=== PATIENT | female | born 1970 | race African-American/Black ===

== ENCOUNTER 2016-11-22 03:45 | Inpatient (IN) ==
--- NOTE | 2016-11-17 12:56 | EKG Report ---
Test Performed on : 11/17/2016 12:15:41 PM Test Reason : PAT Blood Pressure : / mmHG Vent. Rate : 090 BPM Atrial Rate : 090 BPM P-R Int : 166 ms QRS Dur : 074 ms QT Int : 348 ms P-R-T Axes : 052 057 051 degrees QTc Int : 425 ms Normal sinus rhythm. Normal ECG No previous ECGs available Confirmed by Deysi OSWALD, Pratik Tirado ([id number]) on 11/18/2016 7:03:19 AM
[2016-11-17 13:08] LABS: MANUAL DIFF NEEDED? NO
[2016-11-17 13:08] LABS: URINE MICRO REVIEW NEEDED? NO; URINE SOURCE VOIDED
[2016-11-17 13:22] LABS: BASO% 0.4 % (0.0-0.8); EOS# 0.16 X1000 (0.0-0.7); EOS% 1.4 % (0.0-10.0); HEMOGLOBIN 13.4 g/dL (12.0-16.0); LYMPH# 3.77 X1000 (1.2-3.4); MCH 28.8 PG (27-31); MCHC 33.5 g/dL (33-37); MCV 85.8 FL (81-99); MONO# 0.94 X1000 (0.11-0.59); MONO% 8.2 % (1.7-9.3); MPV 11.2 FL (7.4-10.4); PLT 323 X1000 (130-400); RBC 4.66 XMIL (4.2-5.4)
[2016-11-17 13:22] LABS: BILIRUBIN URINE NEGATIVE (NEGATIVE); COLOR YELLOW; GLUCOSE URINE NEGATIVE (NEGATIVE); LEUKOCYTES URINE NEGATIVE (NEGATIVE); NITRITE URINE NEGATIVE (NEGATIVE); PROTEIN URINE NEGATIVE (NEGATIVE); SP GRAVITY URINE 1.017; TURBIDITY URINE CLEAR (CLEAR); UROBILINOGEN URINE NORMAL (NORMAL)
[2016-11-17 13:36] LABS: INR 1.06; PROTIME 11.2 Seconds (9.2-11.7); PTT 29.2 Seconds (22.0-36.0)
[2016-11-17 13:37] LABS: BLOOD URINE MODERATE (NEGATIVE)
[2016-11-17 13:39] LABS: UR EPITHELIAL CELLS <10 /HPF (<10); URINE BACTERIA 1+ /HPF; URINE RBC <10 /HPF (<10); URINE WBC <10 /HPF (<10)
[2016-11-17 14:01] LABS: CALCIUM 7.5 mg/dL (8.8-10.2); POTASSIUM 3.8 mmol/L (3.5-5.1)
[2016-11-22] MEDS ORDERED: LR 1,000 ML ONE ×2 (08:40→13:51)
[2016-11-22] MEDS ORDERED: KEFZOL 2 GM/D5W 2 GM/50 ML IVPB ONE (08:40)
[2016-11-22] MEDS ORDERED: LYRICA ONE (08:41)
[2016-11-22] MEDS ORDERED: COLACE ONE (08:42)
[2016-11-22] MEDS ORDERED: REGLAN ONE (08:43)
[2016-11-22] MEDS ORDERED: PEPCID ONE (08:43)
[2016-11-22] MEDS ORDERED: CELEBREX ONE (08:44)
[2016-11-22] MEDS ORDERED: MARCAINE 0.25% PF/EPI 1:200,000 ONE (10:59)
[2016-11-22] MEDS ORDERED: SODIUM CHLORIDE 0.9% ONE (10:59)
[2016-11-22] MEDS ORDERED: TORADOL ONE (10:59)
[2016-11-22] MEDS ORDERED: CYKLOKAPRON 1,000 MG/NS 1,000 MG/100 ML IVPB ONE (10:59)
[2016-11-22] MEDS ORDERED: NEOSPORIN G.U. IRRIGANT ONE (11:00)
[2016-11-22] MEDS ORDERED: EXPAREL 1.3% ONE (11:00)
[2016-11-22 12:05] LABS: URINE MICRO REVIEW NEEDED? NO; URINE SOURCE CATH
[2016-11-22 12:08] LABS: BILIRUBIN URINE NEGATIVE (NEGATIVE); BLOOD URINE NEGATIVE (NEGATIVE); COLOR YELLOW; GLUCOSE URINE NEGATIVE (NEGATIVE); LEUKOCYTES URINE NEGATIVE (NEGATIVE); NITRITE URINE NEGATIVE (NEGATIVE); PH URINE 5.5; PROTEIN URINE NEGATIVE (NEGATIVE); SP GRAVITY URINE 1.011; TURBIDITY URINE CLEAR (CLEAR); UROBILINOGEN URINE NORMAL (NORMAL)
[2016-11-22 12:09] LABS: UR EPITHELIAL CELLS <10 /HPF (<10); URINE BACTERIA NEGATIVE /HPF; URINE RBC <10 /HPF (<10); URINE WBC <10 /HPF (<10)
[2016-11-22] MEDS ORDERED: DIPRIVAN 1% ONE (13:43)
[2016-11-22] MEDS ORDERED: NS 1,000 ML ONE (13:44)
[2016-11-22] MEDS ORDERED: NEOSTIGMINE ONE (13:50)
[2016-11-22] MEDS ORDERED: NORCURON ONE (13:50)
[2016-11-22] MEDS ORDERED: ZOFRAN ONE (13:50)
[2016-11-22] MEDS ORDERED: QUELICIN (DOSE) ONE (13:51)
[2016-11-22] MEDS ORDERED: XYLOCAINE-MPF 2% ONE (13:51)
[2016-11-22] MEDS ORDERED: OFIRMEV 1000 MG/ISOTONIC SOLN 1,000 MG/100 ML BOTTLE ONE (13:51)
[2016-11-22] MEDS ORDERED: DECADRON ONE (13:51)
[2016-11-22] MEDS ORDERED: ROBINUL ONE (13:51)
[2016-11-22] MEDS ORDERED: AMBIEN PO PRN (15:15)
[2016-11-22] MEDS ORDERED: MORPHINE IV PRN (15:15)
[2016-11-22] MEDS ORDERED: OXY IR PO PRN (15:15)
[2016-11-22] MEDS ORDERED: MILK OF MAGNESIA PO PRN (15:15)
[2016-11-22] MEDS ORDERED: ZOFRAN IV PRN (15:15)
[2016-11-22] MEDS: ULTRAM PO SCH ×2 (15:28→21:07)
[2016-11-22] MEDS: TYLENOL PO SCH ×2 (15:29→21:07)
[2016-11-22] MEDS: NS 1,000 ML IV SCH (15:30)
[2016-11-22] MEDS ORDERED: CYKLOKAPRON 1,000 MG in NS 100 ML IV ONE (17:30)
[2016-11-22] MEDS: KEFZOL 2 GM/D5W 2 GM/50 ML IVPB IV SCH (18:39)
--- NOTE | 2016-11-22 20:08 | OPERATIVE NOTE ---
PROCEDURE DATE: 11/22/2016 PREOPERATIVE DIAGNOSIS: Right hip degenerative joint disease. POSTOPERATIVE DIAGNOSIS: Right hip degenerative joint disease. PROCEDURE PERFORMED: Right anterior total hip arthroplasty. ANESTHESIA: Spinal. SURGEON: Ti Burgos MD. TUBE CUTTER: Merlin. COMPLICATIONS: None. BLOOD LOSS: Minimal description. DESCRIPTION OF PROCEDURE: The patient was brought to the operative suite and placed in supine position. After successful administration of spinal anesthesia, the patient was placed on the OSI table in the usual position for a right hip. The right hip was then prepped and draped in the usual sterile fashion. A longitudinal was made, beginning 2 cm distal and 2 cm lateral to the anterior superior iliac spine, extending distally and slightly laterally 8 cm. It was dissected sharply through the skin and subcutaneous tissue down to tensor fascia. Tensor fascia was incised and dissected bluntly down the deep tensor fascia. The deep tensor fascia was incised. The circumflex vessels were electrocauterized, exposing the anterior capsule. A T-capsulotomy was performed then, exposing the femoral neck. A femoral neck cut was made with the oscillating saw. Femoral head was removed with power corkscrew. The labrum was resected with a scalpel and rongeurs where it was calcified, and then the acetabulum was serially reamed to accept a 50 cup. A 50 cup was then driven into place in the proper amount of inclination and anteversion and the 32 mm inside acetabular liner was locked into place. Attention was then directed to the femur. The femur was externally rotated, extended, adducted, and elevated out of the wound with the hook on the OSI bed. The lateral neck was rongeured. The canal was serially broached to a size 8. A size 8 high offset, +0, 32 mm head was trialed and found to be excellent. Leg length, offset, and stability of the hip and fit and fill of the stem of the trial was removed. Definitive stem was seated on the femur. The Vides taper was then cleaned and dried and then the ceramic 32 mm 0 neck length head was locked onto the Vides taper and then the hip was reduced. It was again shown to be in excellent position. The hip was copiously infiltrated with Exparel, including the posterior capsule, anterior capsule, anterior musculature, and subcutaneous tissue. The anterior capsule was repaired with a running #2 FiberWire. A drain was placed deep to the tensor fascia and buried around the neck and then the tensor fascia was closed with running 0 Vicryl suture. Skin edge was approximated with 2-0 Vicryl. The patient tolerated the procedure well without complication. At the end the procedure, all counts correct. The patient was transferred to the recovery room in stable condition. cc: Ti Burgos MD
[2016-11-22] MEDS: PERIDEX MT SCH (21:03)
[2016-11-22] MEDS: CELEBREX PO SCH (21:04)
[2016-11-22] MEDS: COLACE PO SCH (21:04)
[2016-11-22] MEDS: LYRICA PO SCH (21:04)
[2016-11-23] MEDS: KEFZOL 2 GM/D5W 2 GM/50 ML IVPB IV SCH (03:24)
[2016-11-23] MEDS: NS 1,000 ML IV SCH (03:25)
[2016-11-23] MEDS: TYLENOL PO SCH ×2 (03:25→08:31)
[2016-11-23] MEDS: ULTRAM PO SCH ×2 (03:25→08:29)
[2016-11-23 05:42] LABS: HEMATOCRIT 30.4 % (37.0-47.0); HEMOGLOBIN 10.2 g/dL (12.0-16.0)
[2016-11-23 05:50] LABS: POTASSIUM 4.6 mmol/L (3.5-5.1)
[2016-11-23 05:51] LABS: CALCIUM 6.6 mg/dL (8.8-10.2)
[2016-11-23] MEDS ORDERED: XARELTO PO SCH (06:00)
[2016-11-23] MEDS: LYRICA PO SCH (08:30)
[2016-11-23] MEDS: COLACE PO SCH (08:30)
[2016-11-23] MEDS: CELEBREX PO SCH (08:31)
[2016-11-23] MEDS: PERIDEX MT SCH (08:31)
[2016-11-23] MEDS ORDERED: PEPCID PO SCH (09:00)
[2016-11-23] MEDS ORDERED: DECADRON IV ONE (09:00)
[2016-11-23 11:12] VITALS: BP 128/72
--- NOTE | 2016-11-23 15:40 | DISCHARGE SUMMARY ---
ADMISSION DATE: 11/22/2016 DISCHARGE DATE: 11/23/2016 DISCHARGE DIAGNOSIS: Right hip degenerative joint disease status post right total hip arthroplasty. DISCHARGE MEDICATIONS: See discharge medication list. DISPOSITION: The patient is discharged home with home health. DISCHARGE INSTRUCTIONS: Instructions for total hip arthroplasty protocol. Instructed to return to see Dr. Burgos next . HOSPITAL COURSE: On the day of admission, patient underwent a right total hip arthroplasty. Her postoperative course was unremarkable. At discharge, she is afebrile, tolerating a regular diet, and she is ambulating well with physical therapy. Yesterday she walked 50 feet. Her hemoglobin is 10.2, and her hematocrit is 30.4, and there was 115 mL of output from her drain. Her wound is clean, dry, and intact without sign of infection. She is discharged home with home health in stable condition with instructions to follow up as described above. Dictated by WARREN Gu for Ti Burgos MD cc: WARREN Gu MD
== END 2016-11-23 13:00 | disposition home health service (06) ==
LOC: SURHOLD 03:45 → MERGE 08:30 → 4N 13:25
PROVIDERS: ADMIT Orthopaedic Surgery; ATTEND Orthopaedic Surgery